=== PATIENT | male | born 1950 | race Caucasian/White ===

== ENCOUNTER 2019-06-14 08:58 | Inpatient (IN) ==
[2019-06-14] MEDS ORDERED: cloNIDine HCl 0.1 MG TABLET PO PRN (17:58)
[2019-06-14] MEDS ORDERED: Mag Hydrox/Al Hydrox/Simeth 30 ML UDC PO PRN (18:00)
[2019-06-14] MEDS ORDERED: Ondansetron ODT 4 MG TAB.RAPDIS SL PRN (18:01)
[2019-06-14] MEDS ORDERED: Budesonide/Formoterol 160/4.5 1 PUFF INH IH PRN (18:02)
[2019-06-14] MEDS: *HR* HYDROcodone/Acet 5/325 mg TABLET PO PRN (21:58)
[2019-06-15] MEDS: *HR* Enoxaparin 40 MG/0.4 ML SYRINGE SQ SCH (05:33)
[2019-06-15 05:41] LABS: Basophils % 0.7 %; Eosinophils # 0.2 K/mcL (0.0-0.6); Eosinophils % 4.1 %; Hemoglobin 8.7 g/dL (12.9-16.9); Immature Granulocytes % 0.3 % (0-4); Lymphocytes % 17.9 %; Mean Corpuscular HGB Conc 31.1 g/dL (31.6-35.5); Mean Corpuscular Hemoglobin 32.3 pg (28.0-33.3); Mean Corpuscular Volume 104.1 fL (83.0-100.0); Mean Platelet Volume 9.9 fL (9.4-12.4); Monocytes # 0.3 K/mcL (0.0-1.3); Monocytes % 5.5 %; Neutrophils # 4.2 K/mcL (1.6-8.9); Platelet Count 282 K/mcL (140-400); Red Blood Count 2.69 M/mcL (4.19-5.50); Segmented Neutrophils % 71.5 %; White Blood Count 5.8 K/mcL (4.3-11.1)
[2019-06-15 06:00] LABS: Alanine Aminotransferase 11 Units/L (7-52); Albumin 2.4 g/dL (3.5-5.7); Alkaline Phosphatase 53 Units/L (34-104); Aspartate Amino Transferase 17 Units/L (13-39); BUN/Creatinine Ratio 14 (6-26); Bilirubin,Total 0.2 mg/dL (0.3-1.0); Blood Urea Nitrogen 17 mg/dL (8-23); Calcium 7.4 mg/dL (8.6-10.3); Carbon Dioxide 29 mEq/L (23-29); Chloride 109 mEq/L (98-107); Globulin 2.3 g/dL (2.4-3.5); Glucose 92 mg/dL (70-105); Magnesium 1.8 mg/dL (1.6-2.6); Osmolality,Calculated 291 (280-300); Potassium 4.5 mEq/L (3.5-5.1); Sodium 140 mEq/L (136-145); Total Protein 4.7 g/dL (6.4-8.9); eGFR For African Americans > 60 (> 60); eGFR For Non-African Americans 59 (> 60)
[2019-06-15] MEDS: Finasteride 5 MG TABLET PO SCH (08:41)
[2019-06-15] MEDS: Metoprolol XL (24 HR) Succ 50 MG TAB.ER.24H PO SCH (08:42)
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
[2019-06-15] MEDS: *HR* HYDROcodone/Acet 5/325 mg TABLET PO PRN (21:00)
[2019-06-16] MEDS: *HR* Enoxaparin 40 MG/0.4 ML SYRINGE SQ SCH (06:06)
[2019-06-16] MEDS: Metoprolol XL (24 HR) Succ 50 MG TAB.ER.24H PO SCH (09:48)
[2019-06-16] MEDS: Finasteride 5 MG TABLET PO SCH (09:48)
[2019-06-16] MEDS: *HR* HYDROcodone/Acet 5/325 mg TABLET PO PRN ×2 (09:48→20:23)
--- NOTE | 2019-06-16 12:32 | Internal Med Progress Note ---
Date of Encounter: 06/16/19 Time of Encounter: 12:30 - Assessment and plan (1) S/P colon resection Current Visit: Yes Status: Acute Assessment and plan: Incision healing. Follow up with surgeon as scheduled. (2) Emphysematous cystitis Current Visit: Yes Status: Acute Assessment and plan: Continue Rene catheter. Follow up with urology on . (3) COPD (chronic obstructive pulmonary disease) Current Visit: Yes Status: Chronic Assessment and plan: Controlled with current medication. Monitor. Qualifiers: COPD type: unspecified COPD Qualified Code(s): J44.9 - Chronic obstructive pulmonary disease, unspecified - Time Spent With Patient less than 15 minutes - Subjective Interval history: Participating well with therapy. Ambulating in hallway with Walker with therapy. Notified patient that bladder and prostate pathology are benign and colon still pending. Patient denies fever, chills, nausea vomiting or diarrhea. Denies shortness breath or chest pain. Has rene catheter. To follow up with urology on . - Constitutional Vitals: Temp Pulse Resp BP Pulse Ox 99.3 F 76 18 135/89 93 06/16/19 07:00 06/16/19 07:00 06/16/19 07:00 06/16/19 07:00 06/16/19 07:00 General appearance: Present: A&O X 3, pleasant Exam: thin - Head Head exam: Present: atraumatic, normocephalic - Eye Eye exam: Present: PERRL, conjuntiva pink, sclera anicteric Pupils: Present: PERRL - Neck Neck exam general surgery: Present: supple, trachea midline. Absent: lymphadenopathy - Respiratory Respiratory exam: Present: CTAB. Absent: accessory muscle use, rales, rhonchi, wheezes - Cardiovascular Cardiovascular exam: Present: RRR, +S1, +S2. Absent: diastolic murmur, gallop, rubs, systolic murmur - GI/Abdominal GI/Abdominal exam: Present: normal bowel sounds, soft, no peritoneal signs. Absent: distended, tenderness - Extremities Exam Extremities exam: Present: warm, radial pulses palpable and symmetrical. Absent: calf tenderness, cyanotic, pedal edema - Neurological Exam Neurological exam: Present: CN II-XII intact, oriented X3, no focal deficits. Absent: pronater drift, facial droop, speech deficit - Skin Skin exam: Present: dry, intact Internal Medicine: Result - Labs CBC & Chem 7: 06/15/19 05:25 06/15/19 05:25 Consult Discharge Plan - Plan [facility]: [facility] [Primary Care Provider[facility] -
[2019-06-16] MEDS: Melatonin 3 MG TABLET PO PRN (20:23)
[2019-06-17] MEDS: *HR* Enoxaparin 40 MG/0.4 ML SYRINGE SQ SCH (06:56)
[2019-06-17] MEDS: Finasteride 5 MG TABLET PO SCH (08:20)
[2019-06-17] MEDS: *HR* HYDROcodone/Acet 5/325 mg TABLET PO PRN ×2 (08:20→17:11)
[2019-06-17] MEDS: Metoprolol XL (24 HR) Succ 50 MG TAB.ER.24H PO SCH (08:20)
--- NOTE | 2019-06-17 09:25 | Internal Med Progress Note ---
Date of Encounter: 06/17/19 Time of Encounter: 09:21 - Assessment and plan (1) Malnourished Current Visit: No Status: Chronic Assessment and plan: Some what underweight and malnourished , Appetite is good , conitue to monitor add ensure if needed . Qualifiers: Malnutrition type: protein-calorie malnutrition Protein-calorie malnutrition severity: mild Qualified Code(s): E44.1 - Mild protein-calorie malnutrition (2) Iron deficiency anemia Current Visit: No Status: Chronic Assessment and plan: h/h still low but stable conitnue to give supplement and followup Add Iron and B12 + folic acid Qualifiers: Iron deficiency anemia type: unspecified iron deficiency Qualified Code(s): D50.9 - Iron deficiency anemia, unspecified (3) S/P colon resection Current Visit: Yes Status: Acute Assessment and plan: stable wound healing well Biopsy results still spending - Subjective Interval history: Cross coverage. He seems to be doing fine Having bowel movement. No abdominal pain . NO SOB getting and participating in rehab well NO fever or chills no cough overall feels fine . NO chest pain Nausea , vomiting or diarrhea no fever or chills - Constitutional Vitals: Temp Pulse Resp BP Pulse Ox 98.7 F 81 16 152/99 94 06/17/19 07:27 06/17/19 07:27 06/17/19 07:27 06/17/19 07:27 06/17/19 07:27 General appearance: Present: A&O X 3, pleasant, underweight - Head Head exam: Present: atraumatic - Eye Eye exam: Present: EOMI, PERRL. Absent: scleral icterus, conjuntiva pink Pupils: Present: PERRL - Neck Neck exam general surgery: Present: supple. Absent: tenderness, nuchal rigidity, thyromegaly - Respiratory Respiratory exam: Present: CTAB. Absent: respiratory distress, rhonchi, stridor, wheezes - Cardiovascular Cardiovascular exam: Present: RRR, +S1, +S2. Absent: systolic murmur, tachycardia - GI/Abdominal GI/Abdominal exam: Present: normal bowel sounds, soft. Absent: guarding, rigid Additional comments: incision clean and healing well - Extremities Exam Extremities exam: Present: full ROM. Absent: joint swelling, pedal edema, tenderness - Neurological Exam Neurological exam: Present: altered, CN II-XII intact, oriented X3, strengths equal and symetr throughout. Absent: pronater drift, facial droop, speech deficit Internal Medicine: Result - Labs CBC & Chem 7: 06/15/19 05:25 06/15/19 05:25 Consult Discharge Plan - Plan [facility]errals: [facility] [Primary Care Provider] -
[2019-06-17] MEDS: Folic Acid 1 MG TABLET PO SCH (13:01)
[2019-06-17] MEDS: Cyanocobalamin (B-12) 1,000 MCG TABLET PO SCH (13:02)
[2019-06-18] MEDS: *HR* Enoxaparin 40 MG/0.4 ML SYRINGE SQ SCH (05:43)
[2019-06-18] MEDS: Folic Acid 1 MG TABLET PO SCH (08:26)
[2019-06-18] MEDS: Finasteride 5 MG TABLET PO SCH (08:26)
[2019-06-18] MEDS: *HR* HYDROcodone/Acet 5/325 mg TABLET PO PRN ×2 (08:27→18:15)
[2019-06-18] MEDS: Metoprolol XL (24 HR) Succ 50 MG TAB.ER.24H PO SCH (08:27)
[2019-06-18] MEDS: Cyanocobalamin (B-12) 1,000 MCG TABLET PO SCH (08:27)
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
[2019-06-19] MEDS: *HR* HYDROcodone/Acet 5/325 mg TABLET PO PRN ×2 (02:00→21:27)
[2019-06-19] MEDS: Melatonin 3 MG TABLET PO PRN ×2 (02:01→21:27)
[2019-06-19] MEDS: *HR* Enoxaparin 40 MG/0.4 ML SYRINGE SQ SCH (05:59)
[2019-06-19] MEDS: Folic Acid 1 MG TABLET PO SCH (08:03)
[2019-06-19] MEDS: Cyanocobalamin (B-12) 1,000 MCG TABLET PO SCH (08:03)
[2019-06-19] MEDS: Finasteride 5 MG TABLET PO SCH (08:03)
[2019-06-19] MEDS: Acetaminophen 325 MG TABLET PO PRN (08:03)
[2019-06-19] MEDS: Metoprolol XL (24 HR) Succ 50 MG TAB.ER.24H PO SCH (08:03)
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
[2019-06-20] MEDS: *HR* Enoxaparin 40 MG/0.4 ML SYRINGE SQ SCH (05:16)
[2019-06-20] MEDS: Acetaminophen 325 MG TABLET PO PRN (05:19)
[2019-06-20 05:58] LABS: Hematocrit 28.3 % (37.5-50.1); Hemoglobin 8.7 g/dL (12.9-16.9); Mean Corpuscular HGB Conc 30.7 g/dL (31.6-35.5); Mean Corpuscular Hemoglobin 32.3 pg (28.0-33.3); Mean Corpuscular Volume 105.2 fL (83.0-100.0); Platelet Count 259 K/mcL (140-400); Red Blood Count 2.69 M/mcL (4.19-5.50); Red Cell Distribution Width 15.9 % (11.5-14.5); White Blood Count 6.4 K/mcL (4.3-11.1)
[2019-06-20 06:12] LABS: BUN/Creatinine Ratio 20 (6-26); Blood Urea Nitrogen 17 mg/dL (8-23); Calcium 7.6 mg/dL (8.6-10.3); Carbon Dioxide 32 mEq/L (23-29); Chloride 108 mEq/L (98-107); Glucose 99 mg/dL (70-105); Osmolality,Calculated 294 (280-300); Potassium 4.7 mEq/L (3.5-5.1); Sodium 141 mEq/L (136-145); eGFR For African Americans > 60 (> 60); eGFR For Non-African Americans > 60 (> 60)
[2019-06-20] MEDS: *HR* HYDROcodone/Acet 5/325 mg TABLET PO PRN (07:54)
[2019-06-20] MEDS: Finasteride 5 MG TABLET PO SCH (07:55)
[2019-06-20] MEDS: Metoprolol XL (24 HR) Succ 50 MG TAB.ER.24H PO SCH (07:55)
[2019-06-20] MEDS: Folic Acid 1 MG TABLET PO SCH (07:55)
[2019-06-20] MEDS: Cyanocobalamin (B-12) 1,000 MCG TABLET PO SCH (07:55)
[2019-06-20 08:51] LABS: Iron < 10 mcg/dL (65-175); Transferrin 156 mg/dL (203-362)
--- NOTE | 2019-06-20 15:51 | Internal Med Progress Note ---
Date of Encounter: 06/20/19 Time of Encounter: 17:00 - Subjective Interval history: - Assessment and plan (1) Malnourished Current Visit: No Status: Chronic Assessment and plan: Some what underweight and malnourished , Appetite is good , continue to monitor on ensure increase activity labs ordered for tomorrow . Headaches today most likely tension , will followup symptomatic treatment . No nucal rigidity . . Qualifiers: Malnutrition type: protein-calorie malnutrition Protein-calorie malnutrition severity: mild Qualified Code(s): E44.1 - Mild protein-calorie malnutrition (2) Iron deficiency anemia Current Visit: No Status: Chronic Assessment and plan: h/h still low but stable continue to give supplement and followup Add Iron and B12 + folic acid Labs ordered IRON levels very low will give IV IRON continue other oral Qualifiers: Iron deficiency anemia type: unspecified iron deficiency Qualified Code(s): D50.9 - Iron deficiency anemia, unspecified (3) S/P colon resection Current Visit: Yes Status: Acute Assessment and plan: stable wound healing well, remove inez , no new change doing well , Pathology noted to be tubular Adenoma (4) Edema leg Current Visit: Yes Status: Acute Assessment and plan: edema noted to be in both legs today VARGAS quarles, elevate and followup - Subjective Interval history: pt eating somewhat better Iron level quite low has been malnourised no active bleeding - EXAM General appearance: Present: cooperative, A&O X 3, pleasant, underweight - Head Head exam: Present: atraumatic - Eye Eye exam: Present: EOMI, PERRL. Absent: scleral icterus, conjuntiva pink - Neck Neck exam general surgery: Present: full ROM, supple. Absent: tenderness, nuchal rigidity - Respiratory Respiratory exam: Present: CTAB. Absent: respiratory distress, rhonchi, stridor, wheezes - Cardiovascular Cardiovascular exam: Present: +S1, +S2. Absent: irregular rhythm, JVD, systolic murmur, tachycardia - GI/Abdominal GI/Abdominal exam: Present: normal bowel sounds, soft. Absent: guarding, tenderness, no peritoneal signs - Extremities Exam Extremities exam: Present: pedal edema Additional comments: IV iron fatigued follow labs - Constitutional Vitals: Temp Pulse Resp BP Pulse Ox 97.8 F 75 15 128/88 99 06/20/19 07:42 06/20/19 07:42 06/20/19 07:42 06/20/19 07:42 06/20/19 07:42 General appearance: Present: cooperative, A&O X 3, pleasant, underweight Internal Medicine: Result - Labs CBC & Chem 7: 06/21/19 05:20 06/21/19 05:20 Labs: Short CBC 06/20/19 Range/Units 05:40 WBC 6.4 (4.3-11.1) K/mcL Hgb 8.7 L (12.9-16.9) g/dL Hct 28.3 L (37.5-50.1) % Plt Count 259 (140-400) K/mcL BMP 06/20/19 05:40 Sodium 141 Potassium 4.7 Chloride 108 H Carbon Dioxide 32 H BUN 17 Creatinine 0.85 Glucose 99 Calcium 7.6 L - VTE Documentation of Mechanical Device: Graduated compression elastic hosiery Consult Discharge Plan - Plan Referrals: Delmer Lobato MD [Non-Partnered Physician] - 06/23/19 1:50 pm [facility] [Primary Care Provider[facility] -
[2019-06-20] MEDS: Iron Sucrose Complex 200 MG in 0.9 % Sodium Chloride 100 ML IVPB SCH (18:00)
[2019-06-20] MEDS: Ascorbic Acid 500 MG TABLET PO SCH (21:01)
[2019-06-20] MEDS: Lactobacillus 1 EACH CAP.SPRINK PO SCH (21:01)
[2019-06-21] MEDS: *HR* Enoxaparin 40 MG/0.4 ML SYRINGE SQ SCH (05:06)
[2019-06-21 05:39] LABS: Hematocrit 30.5 % (37.5-50.1); Hemoglobin 9.4 g/dL (12.9-16.9); Mean Corpuscular HGB Conc 30.8 g/dL (31.6-35.5); Mean Corpuscular Hemoglobin 32.6 pg (28.0-33.3); Mean Corpuscular Volume 105.9 fL (83.0-100.0); Platelet Count 271 K/mcL (140-400); Red Blood Count 2.88 M/mcL (4.19-5.50); Red Cell Distribution Width 16.4 % (11.5-14.5); White Blood Count 6.3 K/mcL (4.3-11.1)
[2019-06-21 05:55] LABS: BUN/Creatinine Ratio 19 (6-26); Blood Urea Nitrogen 20 mg/dL (8-23); Calcium 7.9 mg/dL (8.6-10.3); Carbon Dioxide 32 mEq/L (23-29); Chloride 109 mEq/L (98-107); Glucose 98 mg/dL (70-105); Osmolality,Calculated 295 (280-300); Potassium 5.3 mEq/L (3.5-5.1); Sodium 141 mEq/L (136-145); eGFR For African Americans > 60 (> 60); eGFR For Non-African Americans > 60 (> 60)
[2019-06-21 06:07] LABS: Thyroid Stimulating Hormone 3.052 mcIU/mL (0.340-5.600)
[2019-06-21] MEDS: Folic Acid 1 MG TABLET PO SCH (08:25)
[2019-06-21] MEDS: Metoprolol XL (24 HR) Succ 50 MG TAB.ER.24H PO SCH (08:25)
[2019-06-21] MEDS: Lactobacillus 1 EACH CAP.SPRINK PO SCH ×2 (08:25→20:10)
[2019-06-21] MEDS: Finasteride 5 MG TABLET PO SCH (08:25)
[2019-06-21] MEDS: Ascorbic Acid 500 MG TABLET PO SCH ×2 (08:25→20:10)
[2019-06-21] MEDS: Cyanocobalamin (B-12) 1,000 MCG TABLET PO SCH (08:25)
[2019-06-21] MEDS: Iron Sucrose Complex 200 MG in 0.9 % Sodium Chloride 100 ML IVPB SCH (08:26)
--- NOTE | 2019-06-21 10:39 | Internal Med Progress Note ---
Date of Encounter: 06/21/19 Time of Encounter: 10:29 - Assessment and plan (1) S/P colon resection Current Visit: Yes Status: Acute Assessment and plan: No acute issues. Surgical incision appears be healing well. Patient denies any discomforts or nausea. Therapy progressing well. We will continue with current plan of care (2) COPD (chronic obstructive pulmonary disease) Current Visit: Yes Status: Chronic Assessment and plan: No acute issues. Patient denies any dyspnea or productive cough. Lungs are clear throughout. We will continue with current medications Qualifiers: COPD type: unspecified COPD Qualified Code(s): J44.9 - Chronic obstructive pulmonary disease, unspecified (3) Emphysematous cystitis Current Visit: Yes Status: Acute Assessment and plan: No acute issues. Patient had Bhagat catheter discontinued and has been cathetering himself, which he performed prior to his admission. (4) Iron deficiency anemia Current Visit: No Status: Chronic Assessment and plan: No acute issues. Patient continues to receive IV iron. Hemoglobin remains stable at this time. No signs of active bleeding noted Qualifiers: Iron deficiency anemia type: unspecified iron deficiency Qualified Code(s): D50.9 - Iron deficiency anemia, unspecified - Time Spent With Patient less than 15 minutes - Subjective Interval history: Patient appears relaxed currently denies any discomforts or shortness of breath. He states that therapy has been progressing well. States pain is tolerable with current medications. - Constitutional Vitals: Temp Pulse Resp BP Pulse Ox 97.7 F 79 16 165/103 95 06/21/19 07:35 06/21/19 07:35 06/21/19 07:35 06/21/19 07:35 06/21/19 07:35 General appearance: Present: cooperative, A&O X 3, pleasant, underweight - Head Head exam: Present: atraumatic, normocephalic - Eye Eye exam: Present: PERRL, conjuntiva pink, sclera anicteric Pupils: Present: PERRL - Neck Neck exam general surgery: Present: supple, trachea midline. Absent: lymphadenopathy - Respiratory Respiratory exam: Present: CTAB. Absent: accessory muscle use, rales, rhonchi, wheezes - Cardiovascular Cardiovascular exam: Present: RRR, +S1, +S2. Absent: diastolic murmur, gallop, rubs, systolic murmur - GI/Abdominal GI/Abdominal exam: Present: normal bowel sounds, soft, no peritoneal signs. Absent: distended, tenderness Additional comments: Patient with abdominal incision appears dry and intact - Extremities Exam Extremities exam: Present: warm, radial pulses palpable and symmetrical. Absent: calf tenderness, cyanotic, pedal edema - Neurological Exam Neurological exam: Present: CN II-XII intact, oriented X3, no focal deficits. Absent: pronater drift, facial droop, speech deficit - Skin Skin exam: Present: dry, intact Internal Medicine: Result - Labs CBC & Chem 7: 06/21/19 05:20 06/21/19 05:20 Labs: Short CBC 06/21/19 Range/Units 05:20 WBC 6.3 (4.3-11.1) K/mcL Hgb 9.4 L (12.9-16.9) g/dL Hct 30.5 L (37.5-50.1) % Plt Count 271 (140-400) K/mcL BMP 06/21/19 05:20 Sodium 141 Potassium 5.3 H Chloride 109 H Carbon Dioxide 32 H BUN 20 Creatinine 1.06 Glucose 98 Calcium 7.9 L - VTE Documentation of Mechanical Device: Graduated compression elastic hosiery Consult Discharge Plan - Plan Referrals: Delmer Lobato MD [Non-Partnered Physician] - 06/23/19 1:50 pm [facility] [Primary Care Provider] -
[2019-06-21] MEDS: *HR* HYDROcodone/Acet 5/325 mg TABLET PO PRN (20:10)
[2019-06-21] MEDS: Melatonin 3 MG TABLET PO PRN (20:11)
[2019-06-22] MEDS: *HR* Enoxaparin 40 MG/0.4 ML SYRINGE SQ SCH (04:31)
[2019-06-22 05:56] LABS: Hematocrit 27.6 % (37.5-50.1); Hemoglobin 8.7 g/dL (12.9-16.9); Mean Corpuscular HGB Conc 31.5 g/dL (31.6-35.5); Mean Corpuscular Volume 104.5 fL (83.0-100.0); Mean Platelet Volume 10.2 fL (9.4-12.4); Platelet Count 261 K/mcL (140-400); Red Blood Count 2.64 M/mcL (4.19-5.50); Red Cell Distribution Width 16.5 % (11.5-14.5); White Blood Count 7.1 K/mcL (4.3-11.1)
[2019-06-22 06:11] LABS: BUN/Creatinine Ratio 22 (6-26); Blood Urea Nitrogen 21 mg/dL (8-23); Calcium 7.7 mg/dL (8.6-10.3); Carbon Dioxide 29 mEq/L (23-29); Chloride 106 mEq/L (98-107); Glucose 106 mg/dL (70-105); Osmolality,Calculated 291 (280-300); Potassium 4.3 mEq/L (3.5-5.1); Sodium 139 mEq/L (136-145); eGFR For African Americans > 60 (> 60); eGFR For Non-African Americans > 60 (> 60)
[2019-06-22] MEDS: Finasteride 5 MG TABLET PO SCH (08:15)
[2019-06-22] MEDS: Metoprolol XL (24 HR) Succ 50 MG TAB.ER.24H PO SCH (08:15)
[2019-06-22] MEDS: Cyanocobalamin (B-12) 1,000 MCG TABLET PO SCH (08:15)
[2019-06-22] MEDS: Ascorbic Acid 500 MG TABLET PO SCH ×2 (08:15→20:21)
[2019-06-22] MEDS: Folic Acid 1 MG TABLET PO SCH (08:16)
[2019-06-22] MEDS: Lactobacillus 1 EACH CAP.SPRINK PO SCH ×2 (08:16→20:20)
--- NOTE | 2019-06-22 10:06 | Internal Med Progress Note ---
Date of Encounter: 06/22/19 Time of Encounter: 10:04 - Assessment and plan (1) S/P colon resection Current Visit: Yes Status: Acute Assessment and plan: No acute issues. Surgical incision appears be healing well. Patient denies any discomforts or nausea. Therapy progressing well. We will continue with current plan of care (2) COPD (chronic obstructive pulmonary disease) Current Visit: Yes Status: Chronic Assessment and plan: No acute issues. Patient denies any dyspnea or productive cough. Lungs are clear throughout. We will continue with current medications Qualifiers: COPD type: unspecified COPD Qualified Code(s): J44.9 - Chronic obstructive pulmonary disease, unspecified (3) Emphysematous cystitis Current Visit: Yes Status: Acute Assessment and plan: No acute issues. Patient had Bhagat catheter discontinued and has been cathetering himself, which he performed prior to his admission. Patient denies any issues with self cathetering (4) Iron deficiency anemia Current Visit: No Status: Chronic Assessment and plan: No acute issues. Patient continues to receive IV iron. Hemoglobin remains stable at this time. No signs of active bleeding noted Qualifiers: Iron deficiency anemia type: unspecified iron deficiency Qualified Code(s): D50.9 - Iron deficiency anemia, unspecified - Time Spent With Patient less than 15 minutes - Subjective Interval history: Patient appears relaxed currently denies any discomforts or shortness of breath. He states that therapy has been progressing well. States pain is tolerable with current medications. Patient states that he is excited about being discharged to home tomorrow and feels that he is ready. - Constitutional Vitals: Temp Pulse Resp BP Pulse Ox 98.7 F 78 16 129/84 96 06/22/19 07:59 06/22/19 07:59 06/22/19 07:59 06/22/19 07:59 06/22/19 07:59 General appearance: Present: cooperative, A&O X 3, pleasant, underweight - Head Head exam: Present: atraumatic, normocephalic - Eye Eye exam: Present: PERRL, conjuntiva pink, sclera anicteric Pupils: Present: PERRL - Neck Neck exam general surgery: Present: supple, trachea midline. Absent: lymphadenopathy - Respiratory Respiratory exam: Present: CTAB. Absent: accessory muscle use, rales, rhonchi, wheezes - Cardiovascular Cardiovascular exam: Present: RRR, +S1, +S2. Absent: diastolic murmur, gallop, rubs, systolic murmur - GI/Abdominal GI/Abdominal exam: Present: normal bowel sounds, soft, no peritoneal signs. Absent: distended, tenderness Additional comments: Abdominal right quadrant incision appears dry and intact - Extremities Exam Extremities exam: Present: warm, radial pulses palpable and symmetrical. Ab sent: calf tenderness, cyanotic, pedal edema - Neurological Exam Neurological exam: Present: CN II-XII intact, oriented X3, no focal deficits. Absent: pronater drift, facial droop, speech deficit - Skin Skin exam: Present: dry, intact Internal Medicine: Result - Labs CBC & Chem 7: 06/22/19 05:25 06/22/19 05:25 Labs: Short CBC 06/22/19 Range/Units 05:25 WBC 7.1 (4.3-11.1) K/mcL Hgb 8.7 L (12.9-16.9) g/dL Hct 27.6 L (37.5-50.1) % Plt Count 261 (140-400) K/mcL BMP 06/22/19 05:25 Sodium 139 Potassium 4.3 Chloride 106 Carbon Dioxide 29 BUN 21 Creatinine 0.95 Glucose 106 H Calcium 7.7 L - VTE Documentation of Mechanical Device: Graduated compression elastic hosiery Consult Discharge Plan - Plan Referrals: Delmer Lobato MD [Non-Partnered Physician] - 06/23/19 1:50 pm [facility] [Primary Care Provider] -
[2019-06-22] MEDS: Iron Sucrose Complex 200 MG in 0.9 % Sodium Chloride 100 ML IVPB SCH (17:02)
[2019-06-22] MEDS: *HR* HYDROcodone/Acet 5/325 mg TABLET PO PRN (20:20)
[2019-06-22] MEDS: Melatonin 3 MG TABLET PO PRN (20:23)
[2019-06-23] MEDS: *HR* HYDROcodone/Acet 5/325 mg TABLET PO PRN (04:04)
[2019-06-23] MEDS: *HR* Enoxaparin 40 MG/0.4 ML SYRINGE SQ SCH (04:04)
[2019-06-23 05:25] LABS: Hemoglobin 8.3 g/dL (12.9-16.9); Mean Corpuscular HGB Conc 30.7 g/dL (31.6-35.5); Mean Corpuscular Hemoglobin 32.7 pg (28.0-33.3); Mean Corpuscular Volume 106.3 fL (83.0-100.0); Platelet Count 265 K/mcL (140-400); Red Blood Count 2.54 M/mcL (4.19-5.50); Red Cell Distribution Width 16.6 % (11.5-14.5); White Blood Count 5.1 K/mcL (4.3-11.1)
[2019-06-23 05:41] LABS: BUN/Creatinine Ratio 20 (6-26); Blood Urea Nitrogen 19 mg/dL (8-23); Calcium 7.6 mg/dL (8.6-10.3); Carbon Dioxide 31 mEq/L (23-29); Chloride 107 mEq/L (98-107); Glucose 95 mg/dL (70-105); Osmolality,Calculated 294 (280-300); Potassium 4.5 mEq/L (3.5-5.1); Sodium 141 mEq/L (136-145); eGFR For African Americans > 60 (> 60); eGFR For Non-African Americans > 60 (> 60)
[2019-06-23 07:11] VITALS: BP 133/84
[2019-06-23] MEDS: Lactobacillus 1 EACH CAP.SPRINK PO SCH (08:02)
[2019-06-23] MEDS: Folic Acid 1 MG TABLET PO SCH (08:02)
[2019-06-23] MEDS: Acetaminophen 325 MG TABLET PO PRN (08:02)
[2019-06-23] MEDS: Metoprolol XL (24 HR) Succ 50 MG TAB.ER.24H PO SCH (08:02)
[2019-06-23] MEDS: Finasteride 5 MG TABLET PO SCH (08:02)
[2019-06-23] MEDS: Ascorbic Acid 500 MG TABLET PO SCH (08:02)
[2019-06-23] MEDS: Cyanocobalamin (B-12) 1,000 MCG TABLET PO SCH (08:02)
--- NOTE | 2019-06-23 08:45 | Discharge Summary ---
Orders not resulted at time of discharge: Pending orders 06/21/19 05:20 [facility] AM 0400 Date of Encounter: 06/23/19 Time of Encounter: 08:41 - Discharge Diagnosis (1) S/P colon resection Priority: Primary Status: Acute Comments: Patient has a right abdominal surgical incision appears to be healing well. Pain is been well managed during his stay. Patient has been moving bowels well and denies any current issues. Patient with follow-up with surgery today. We will continue with current medication and patient is to continue follow-up with PCP (2) COPD (chronic obstructive pulmonary disease) Priority: Secondary Status: Chronic Comments: No acute issues during stay of facility. Patient has denied any productive cough or dyspnea during his stay. Patient has a continue follow-up with PCP for further management and continue with his current discharge medications Qualifiers: COPD type: unspecified COPD Qualified Code(s): J44.9 - Chronic obstructive pulmonary disease, unspecified (3) Emphysematous cystitis Priority: Secondary Status: Acute Comments: No issues. Patient had Bhagat catheter discontinued and has had to perform self cathetering, which was his routine at home prior to admission. Patient is continue follow-up with PCP and urology after discharge (4) Iron deficiency anemia Priority: Secondary Status: Chronic Comments: No acute issues. Patient's hemoglobin has been stable during his last several d ays at therapy. Patient received supplemental iron during his stay. Patient has continue with follow-up with PCP for further management Qualifiers: Iron deficiency anemia type: unspecified iron deficiency Qualified Code(s): D50.9 - Iron deficiency anemia, unspecified Hospital course: Mr. Cm is a 69 year old male with a past medical history significant for hypertension and hyperlipidemia, who presented to the hospital because of the episode of syncope. Patient was found to be in septic shock, started on IV fluids and broad-spectrum antibiotics. Bhagat catheter showed foul-smelling and dark urine. Urology was consulted. Patient was taken to the operating room by the urology, diagnosed with emphysematous cystitis, had TUR prostate and TUR of necrotic bladder mucosa. Bhagat was placed and it was recommended to discharge the patient with Bhagat. Cultures were obtained which were negative. Patient w as continued on IV Zosyn. The scan, which was done at the time of admission was also concerning for filling defect of the cecum/ascending colon. Colonoscopy was done which showed malignant tumor in the proximal ascending colon and cecum. Surgery was recommended and the patient underwent right colectomy on 06/08/19. Samples were sent to the pathology for further evaluation with Pathology report is still pending. Patient postoperative course was without any complications. He has been passing flatus, passed stools and denies any issues Patient dissipated therapy and progressed well. Denies any discomforts on day of discharge. Patient continues to perform self cathetering after having his Bhagat catheter discontinued by urology. Patient states that he is comfortable with self cathetering as this is a routine that he performed prior to his initial admission. Follow-up with surgeon today and is instructed to follow-up with his PCP for further management within one week of discharge. Patient has refused any further therapy after discharge Discharge discussed with: patient Time spent discussing smoking cessation with patient: 3 to 10 minutes - Time Spent with Patient Total time spent providing and/or coordinating discharge services: Time spent: Less than 30 minutes - Discharge Medications Prescriptions: No Action Albuterol Sulfate [Proventil Inhaler] 2 puff IH Q4H PRN PRN Reason: Shortness Of Breath Budesonide/Formoterol 160/4.5 [Symbicort 160/4.5] 2 puff IH BIDR PRN PRN Reason: Shortness Of Breath Finasteride [Proscar] 5 mg PO DAILY Metoprolol Succinate [Toprol Xl] 50 mg PO QAM Hydrocodone/Acetaminophen [[place] 5-325 Tablet] 1 each PO Q8H 7 Days #21 tablet Omeprazole [PriLOSEC] 20 mg PO DAILY@0630 capsule. Tamsulosin HCl [Flomax] 0.4 mg PO DAILY Home Medications: Tamsulosin HCl [Flomax] 0.4 mg PO DAILY 05/31/19 [History] Albuterol Sulfate [Proventil Inhaler] 2 puff IH Q4H PRN 06/01/19 [History] Budesonide/Formoterol 160/4.5 [Symbicort 160/4.5] 2 puff IH BIDR PRN 06/01/19 [History] Finasteride [Proscar] 5 mg PO DAILY 06/01/19 [History] Metoprolol Succinate [Toprol Xl] 50 mg PO QAM 06/01/19 [History] Hydrocodone/Acetaminophen [[place] 5-325 Tablet] 1 each PO Q8H 7 Days #21 tablet 06/14/19 [Rx] Omeprazole [PriLOSEC] 20 mg PO DAILY@0630 capsule. 06/14/19 [Rx] Allergies/Adverse Reactions: Allergy/AdvReac Type Severity Reaction Status Date / Time No Known Allergies Allergy Verified 06/01/19 19:38 Date of admission: 06/14/19 16:41 Primary care physician: [facility] Consults: 06/14/19 16:59 Consult to Glue Maker [CONS] Routine Reason for SW Consult: Discharge planning. 06/14/19 17:55 Consult to Occupational Therapy [CONS] Routine Comment: Evaluate, develop and implement POC Reason for Consult: weakness Does patient have active BEDREST order?: No Is patient medically & hemodynamically stable?: Yes Consult to Physical Therapy [CONS] Routine Comment: Evaluate, develop and implement POC Reason for Consult: weakness Does patient have active BEDREST order?: No Is patient medically & hemodynamically stable?: Yes Consult to Recreational Therapy [CONS] Routine Comment: Evaluate, develop and implement POC 06/15/19 08:31 dietary consult [Consult to Nutrition] [CONS] Routine Comment: Consulting Provider: NUTRITION Reason for Dietary Consult: Other PO Supplementation Other:: colon CA Discharging clinician: Hawk Phipps - Constitutional Vitals: Temp Pulse Resp BP Pulse Ox 98.1 F 82 16 133/84 94 06/23/19 06:45 06/23/19 06:45 06/23/19 06:45 06/23/19 06:45 06/23/19 06:45 General appearance: Present: cooperative, A&O X 3, pleasant, underweight - Head Head exam: Present: atraumatic, normocephalic - Eye Eye exam: Present: PERRL, conjuntiva pink, sclera anicteric Pupils: Present: PERRL - Neck Neck exam general surgery: Present: supple, trachea midline. Absent: lymphadenopathy - Respiratory Respiratory exam: Present: decreased breath sounds, CTAB. Absent: accessory muscle use, rales, rhonchi, wheezes - Cardiovascular Cardiovascular exam: Present: RRR, +S1, +S2. Absent: diastolic murmur, gallop, rubs, systolic murmur - GI/Abdominal GI/Abdominal exam: Present: normal bowel sounds, soft, no peritoneal signs. Absent: distended, tenderness Additional comments: Patient with incision to right quadrants of abdomen which appears to be healing well. - Extremities Exam Extremities exam: Present: warm, radial pulses palpable and symmetrical. Absent: calf tenderness, cyanotic, pedal edema - Neurological Exam Neurological exam: Present: CN II-XII intact, oriented X3, no focal deficits. Absent: pronater drift, facial droop, speech deficit - Skin Skin exam: Present: dry, intact - Patient Status Disposition: Home, Self-Care Condition: Good Functional capacity at discharge: uses cane/walker Overall status at discharge: patient is progressing back to baseline - Discharge Instructions Follow Up With: Delmer Lobato MD [Non-Partnered Physician] - 06/23/19 1:50 pm [facility] [Primary Care Provider] - - Diet and Activity Activity: ambulate only with your walker, as per physical therapy, increase activity as tolerated Diet: advance to your usual diet, low fat, low cholesterol, low salt diet - VTE Documentation of Mechanical Device: Graduated compression elastic hosiery
[2019-06-23] MEDS: Iron Sucrose Complex 200 MG in 0.9 % Sodium Chloride 100 ML IVPB SCH (09:31)
== END 2019-06-23 12:00 | disposition home or self-care (01) | DRG 949 ==
LOC: INPGRE 16:41